=== PATIENT | female | born 1950 | race Caucasian/White ===

== ENCOUNTER 2021-03-03 16:45 | Emergency (ER) | payer OTHER ==
--- NOTE | 2021-03-03 18:53 | RAD REPORT ---
EXAM DESCRIPTION: RAD - Knee Left 3 View - 03/03/2021 6:04 pm CLINICAL HISTORY: PAIN COMPARISON: No comparisons FINDINGS: No fracture, dislocation or periosteal reaction.No joint effusion seen. Medial compartment narrowing is present with large marginal spurs. There is irregular contour to the medial femoral con dyle articular surface and slightly less irregular contour to the medial tibial plateau. Patella femo ral joint space narrowing present with prominent marginal spurs. No soft tissue abnormality. IMPRESSION: Advanced left knee joint degenerative change without acute finding. Clinical concerns for internal derangement or occult bony injury could be further assessed with MR im aging.
[2021-03-03] MEDS ORDERED: HYDROCODONE/APAP 5/325 MG TAB ONE (19:24)
[2021-03-03] MEDS ORDERED: KETOROLAC 30 MG/ML INJ ONE (19:25)
--- NOTE | 2021-03-03 21:11 | ER ---
Nurse's Notes [facility] Name: Emily Crowley Age: 70 yrs Sex: Female : 1950 Arrival Date: 03/03/2021 Time: 16:48 Bed 13 Private MD: Diagnosis: Other internal derangements of left knee Presentation: 03/03 17:20 Chief complaint: Patient states: "I woke up with my left leg hurting today, yesterday I aa5 went to a volleyball game and I was climbing stairs and I was fine". Pt c/o pain to left knee pain. 17:20 Coronavirus screen: At this time, the client does not indicate any symptoms associated aa5 with coronavirus-19. Ebola Screen: No symptoms or risks identified at this time. Initial Sepsis Screen: Does the patient meet any 2 criteria? No. Patient's initial sepsis screen is negative. Does the patient have a suspected source of infection? No. Patient's initial sepsis screen is negative. Risk Assessment: Do you want to hurt yourself or someone else? Patient reports no desire to harm self or others. Onset of symptoms was February 2021. 17:20 Acuity: JAMIR 3 aa5 17:20 Method Of Arrival: Wheelchair aa5 Triage Assessment: 17:20 General: Appears in no apparent distress. uncomfortable, Behavior is calm, cooperative, bp appropriate for age. Pain: Complains of pain in left knee. EENT: No deficits noted. Neuro: Level of Consciousness is awake, alert, obeys commands, Oriented to Appropriate for age. Historical: - Allergies: 17:24 No Known Allergies; aa5 - PMHx: 17:24 Diabetes mellitus; Hypercholesterolemia; aa5 - PSHx: 17:24 right knee replacement; aa5 - Immunization history:: Client reports having NOT received the Covid vaccine. - Social history:: Smoking status: Patient denies any tobacco usage or history of. Screenin:20 Abuse screen: Denies threats or abuse. Denies injuries from another. Nutritional bp screening: No deficits noted. Tuberculosis screening: No symptoms or risk factors identified. Fall Risk None identified. Assessment: 17:20 General: SEE TRIAGE NOTE. bp 18:39 Reassessment: No changes from previously documented assessment. Patient and/or family bp updated on plan of care and expected duration. Pain level reassessed. 19:05 Reassessment: Pt in hallway screaming " nurse nurse" . Escort pt back in room and to dc2 bed. Pt fussing and is very upset that no one ( ) has been in to speak to her and review her xrays, Pt wants to know why a PA is seeing her and not the ER physician. Pt express multiple complaints. Explained I am in report and will help her as soon as I know what is going on. Pt very nasty and is rude to staff. 19:30 Reassessment: attempt to bring pt medications, pt begin yelling at this RN. Will dc2 attempt to speak and medicate when pt stops screaming. 21:40 Reassessment: Pt back and forth about the knee brace, demands to know " the PA's last dc2 name" and demands that he come to the room. Pt was not expecting this kind of knee brace, is not what he told me that I would be getting and doesn't want this . After multiple conversations pt states she has a knee support at home and wants to know if this will work. Will ask and inform provider. Pt continues to be rude and loud to staff. 22:10 Reassessment: Charge nurse Lisa at bedside to place knee brace and instruct on. dc2 Vital Signs: 17:20 BP 159 / 106; Pulse 97; Resp 18 S; Temp 99.4(TE); Pulse Ox 97% on R/A; Weight 79.83 kg aa5 (R); Height 5 ft. 3 in. (160.02 cm) (R); 18:44 BP 159 / 100; Pulse 86; Resp 17; Pulse Ox 99% ; bp 19:05 BP 143 / 83; Pulse 87; Resp 19; Pulse Ox 98% on R/A; Pain 8/10; dc2 20:00 BP 146 / 79; Pulse 79; Resp 17; Pulse Ox 100% ; Pain 8/10; dc2 21:00 BP 143 / 82; Pulse 75; Resp 18; Pulse Ox 99% on R/A; Pain 2/10; dc2 17:20 Body Mass Index 31.18 (79.83 kg, 160.02 cm) aa5 ED Course: 16:48 Patient arrived in ED. ds1 17:00 Patient's name was called from ER lobby. No response. aa5 17:08 Patient's name was called from ER lobby. No response. aa5 17:20 Arm band placed on. aa5 17:20 Patient has correct armband on for positive identification. Placed in gown. Bed in low bp position. Call light in reach. Side rails up X2. 17:24 Triage completed. aa5 18:00 Randall Marley, RN is Primary Nurse. bp 18:02 Knee Left 3 View XRAY In Process Unspecified. EDMS 18:05 Blaise Callahan PA is PHCP. [facility] 18:05 Ayaz Aleman MD is Attending Physician. jmm 19:20 No provider procedures requiring assistance completed. dc2 19:20 Patient did not have IV access during this emergency room visit. dc2 19:45 Ultrasound at bedside. dc2 20:13 US Extremity Venous Unilateral Ltd In Process Unspecified. EDMS 20:30 Nurse Practitioner and/or Physician Property Field Adjuster to see patient. dc2 21:10 Ayaz Aleman MD is Referral Physician. [facility] 21:10 Referral Physician role handed off by Ayaz Aleman MD [facility] 21:11 Jose Garcia MD is Referral Physician. [facility] Administered Medications: 19:30 Drug: Ketorolac 30 mg Route: IM; Site: left deltoid; dc2 20:10 Follow up: Response: Pain is decreased dc2 19:30 Drug: [place] (HYDROcodone-acetaminophen) 5 mg-325 mg 1 tabs Route: PO; dc2 20:10 Follow up: Response: Pain is decreased dc2 Outcome: 21:10 Discharge ordered by . [facility] 21:30 Discharged to home dc2 21:30 Condition: stable 21:30 Discharge instructions given to patient, Instructed on discharge instructions, follow up and referral plans. Demonstrated understanding of instructions, follow-up care. 22:12 Patient left the ED. dc2 Signatures: Dispatcher [employer] EDTX Blaise Callahan PA PA Xochitl Brambila ds1 Geno Dumont, RN RN avis5 Randall Marley, RN RN bp Porsha, Rosa RN RN dc2 Corrections: (The following items were deleted from the chart) 17:28 17:24 PMHx: Hypertensive disorder; aa5 aa5
--- NOTE | 2021-03-03 21:11 | EDPHYS ---
Physician Documentation [facility] Name: Emily Crowley Age: 70 yrs Sex: Female : 1950 Arrival Date: 03/03/2021 Time: 16:48 Bed 13 Private MD: ED Physician Ayaz Aleman HPI: 03/03 17:31 This 70 yrs old Female presents to ER via Wheelchair with complaints of Leg jmm Pain. 17:31 The patient presents with pain, that is acute. Onset: The symptoms/episode jmm began/occurred this morning. Modifying factors: The symptoms are alleviated by nothing. the symptoms are aggravated by movement, weight bearing. Associated signs and symptoms: Pertinent positives: swelling. This is a 70-year-old female with history of diabetes mellitus, hyperlipidemia the presents emerged department with complaints of left lateral knee pain which occurred as she awoke this morning. Patient denies any known injury, denies any trauma to the knee but states that the previous day she was working in a [employer] walking up steps,. Patient denies fever or chills.. Historical: - Allergies: 17:24 No Known Allergies; aa5 - PMHx: 17:24 Diabetes mellitus; Hypercholesterolemia; aa5 - PSHx: 17:24 right knee replacement; aa5 - Immunization history:: Client reports having NOT received the Covid vaccine. - Social history:: Smoking status: Patient denies any tobacco usage or history of. ROS: 17:31 Constitutional: Negative for fever, chills, and weight loss, Cardiovascular: Negative jmm for chest pain, palpitations, and edema, Respiratory: Negative for shortness of breath, cough, wheezing, and pleuritic chest pain. 17:31 Constitutional: 17:31 MS/extremity: Positive for pain. 17:31 All other systems are negative. Exam: 17:31 Head/Face: atraumatic. Eyes: EOMI, no conjunctival erythema appreciated ENT: Moist jmm Mucus Membranes Neck: Trachea midline, Supple Chest/axilla: Normal chest wall appearance and motion. Cardiovascular: Regular rate and rhythm. No edema appreciated Respiratory: Normal respirations, no respiratory distress appreciated Abdomen/GI: Non distended, soft Back: Normal ROM Skin: General appearance color normal 17:31 Constitutional: The patient appears alert, awake, uncomfortable. 17:31 Musculoskeletal/extremity: ,Full range of motion appreciated to the left knee lateral anterior pain on palpation, positive Jt's sign, compartments are soft, full dorsalis pulse, neurovascular intact. 17:31 Skin: Appearance: Color: normal in color. 17:31 Neuro: Motor: is normal. 17:31 Psych: Behavior/mood is anxious. Vital Signs: 17:20 BP 159 / 106; Pulse 97; Resp 18 S; Temp 99.4(TE); Pulse Ox 97% on R/A; Weight 79.83 kg aa5 (R); Height 5 ft. 3 in. (160.02 cm) (R); 18:44 BP 159 / 100; Pulse 86; Resp 17; Pulse Ox 99% ; bp 19:05 BP 143 / 83; Pulse 87; Resp 19; Pulse Ox 98% on R/A; Pain 8/10; dc2 20:00 BP 146 / 79; Pulse 79; Resp 17; Pulse Ox 100% ; Pain 8/10; dc2 21:00 BP 143 / 82; Pulse 75; Resp 18; Pulse Ox 99% on R/A; Pain 2/10; dc2 17:20 Body Mass Index 31.18 (79.83 kg, 160.02 cm) aa5 MDM: 18:51 Patient medically screened. sebastian 21:09 Data reviewed: vital signs, nurses notes. Counseling: I had a detailed discussion with sebastian the patient and/or guardian regarding: the historical points, exam findings, and any diagnostic results supporting the discharge/admit diagnosis, radiology results, the need for outpatient follow up, to return to the emergency department if symptoms worsen or persist or if there are any questions or concerns that arise at home. ED course: Is alert nontoxic in appearance in the ED. I do not suspect septic joint, patient is able to fully range of motion the knee, patient is afebrile nontoxic in appearance. Most likely internal derangement possibly meniscus. Patient advised follow-up with orthopedics otherwise given strict return precautions. Patient understood agrees plan of care.. 03/03 17:31 Order name: Knee Left 3 View XRAY; Complete Time: 18:55 aa5 03/03 18:52 Order name: US Extremity Venous Unilateral Ltd; Complete Time: 21:43 sebastian 03/03 20:09 Order name: Knee Immobilizer; Complete Time: 21:46 sebastian Administered Medications: 19:30 Drug: Ketorolac 30 mg Route: IM; Site: left deltoid; dc2 20:10 Follow up: Response: Pain is decreased dc2 19:30 Drug: [place] (HYDROcodone-acetaminophen) 5 mg-325 mg 1 tabs Route: PO; dc2 20:10 Follow up: Response: Pain is decreased dc2 Disposition Summary: 03/03/21 21:10 Discharge Ordered Location: Home jm Condition: Stable jmm Diagnosis - Other internal derangements of left knee jmm Followup: [facility] - With: Ayaz Aleman MD - When: 2 - 3 days - Reason: Recheck today's complaints, Continuance of care, Re-evaluation by your physician Followup: [facility] - With: Jose Garcia MD - When: 2 - 3 days - Reason: Recheck today's complaints, Continuance of care, Re-evaluation by your physician Discharge Instructions: - Discharge Summary Sheet jmm - Acute Knee Pain, Adult jmm Forms: - Medication Reconciliation Form [facility] - Thank You Letter [facility] - Antibiotic Education [facility] - Prescription Opioid Use [facility] Addendum: 03/06/2021 19:08 Co-signature as Attending Physician, Ayaz serrano Signatures: Dispatcher [employer] EDMS Ayaz Aleman MD MD pkl Mickail, Joel, PA PA [facility] Geno Dumont, RN RN aa5 Rosa Story RN RN dc2 Corrections: (The following items were deleted from the chart) 03/03 17:28 17:24 PMHx: Hypertensive disorder; aa5 aa5
--- NOTE | 2021-03-03 21:39 | RAD REPORT ---
EXAM DESCRIPTION: US - Extremity Venous Uni Ltd - 03/03/2021 8:14 pm CLINICAL HISTORY: SWELLING COMPARISON: None. TECHNIQUE: Real-time sonographic evaluation of the left lower extremity deep venous system was perfo rmed. FINDINGS: Normal compressibility, flow augmentation, phasic flow and spontaneous flow are identified in the left lower extremity common femoral, superficial femoral, popliteal and posterior tibial vein s. No intraluminal filling defects seen. A 4 x 3 x 1.3 centimeter popliteal fossa cyst present. No cyst rupture or hemorrhage findings. IMPRESSION: No DVT in the left lower extremity. A 4 centimeter left popliteal fossa cyst is present.
[2021-03-04 00:25] VITALS: TEMP 99.4
[2021-03-04 00:56] VITALS: BP 146/79; O2SAT 100
--- OUTSIDE RECORDS SUMMARY | 2021-03-07 18:16 | XMS REPORT | Continuity of Care Document ---
:1950 [facility] t Address [address] [place] [address] [address] [place] [address] Care Team Providers Name Role Phone LISBET Attending Clinician Unavailable Surjit URBINA Attending Clinician Unavailable Gardenia Howard Attending Clinician [phone] Gogo Rossi Attending Clinician Unavailable LISBET Admitting Clinician Unavailable Surjit URBINA Admitting Clinician Unavailable Physician, Primary or Family Admitting Clinician Unavailabl e Payers Payer Name Policy Type Policy Number Effective Date Expiration Date S esa MEDICARE B-TX: [id number] 2012 [employer] 00:00:00 [employer] [id number] [employer] (MEDICARE SUPPLEMENT) Problems This patient has no known problems. Allergies, Adverse Reactions, Alerts Allergy Allergy Status Severity Reaction(s) Onset Inactive Treating Comm ents Source Name Type Date Date Clinician No Known DA Active U [facility] 1-25 Clear nces 00:00: [place] [address] [facility] No Known DA Active U NONE [facility] 1-25 Clear nces 00:00: [place] [address] [facility] Medications This patient has no known medications. Procedures This patient has no known procedures. Encounters Start End Encounter Admission Attending Care Care Encounter Source Date/Time Date/Time Type Type Clinicians Facility Department ID 2021-03-07 Outpatient YADIEL_Susie [facility] [id number] [place] 01:21:27 331 [facility] 2021-03-06 Outpatient LISBET [facility] [id number] [place] 23:29:07 [facility] 2021-03-06 Outpatient KEFFER_A [facility] [id number] [place] 21:38:44 [facility] 2021-03-06 Outpatient KEFFER_A [facility] [id number] 0 [place] 15:18:11 [facility] 2019-11-09 Inpatient Surjit URBINA, [id number] 2021-02-03 2021-02-03 Outpatient Sandi Howard [facility] [id number] 00:00:00 00:00:00 [place] [id number] 2020-11-24 2020-11-24 Outpatient Sandi Howard [facility] [id number] 00:00:00 00:00:00 [place] [id number] 2020-11-20 2020-11-20 Outpatient Sandi Howard [facility] [id number] 00:00:00 00:00:00 [place] [id number] 2020-11-20 2020-11-20 Outpatient Sandi Howard [facility] [id number] 00:00:00 00:00:00 [place] [id number] 2020-11-20 2020-11-20 Outpatient Sandi Howard [facility] [id number] 00:00:00 00:00:00 [place] [id number] 2020 2020 Outpatient Sandi Howard [facility] [id number] 00:00:00 00:00:00 [place] [id number] 2020 2020 Outpatient Sandi Howard [facility] [id number] 00:00:00 00:00:00 [place] [id number] 2020-09-15 2020-09-15 Outpatient Sandi Howard [facility] [id number] 00:00:00 00:00:00 [place] [id number] 2020-07-23 2020-07-23 Outpatient Sandi Howard [facility] [id number] 00:00:00 00:00:00 [place] [id number] 2020-03-14 2020-03-14 Outpatient [facility] [id number] [place] 10:20:00 10:20:00 [facility] 2019-06-26 2019-06-26 Outpatient TRESA DomingoKRISTOPHER MILVIA [id number] [facility] 12:00:00 12:00:00 Farshad [id number] [facility] 2019-01-26 2019-01-26 Outpatient [facility] [id number] [place] 10:32:00 10:32:00 [facility] Results This patient has no known results.
== END 2021-03-03 22:12 | disposition home or self-care (01) ==
LOC: ER 16:45
DX: M23.8X2 Other internal derangements of left knee (principal)
CPT/HCPCS: 93971; 96372; 99283